=== PATIENT | male | born 1985 | race African-American/Black ===

== ENCOUNTER 2019-01-06 20:08 | Emergency (ER) | payer BC ==
[~2019-01-06] VITALS: Ht 182.9 cm; Wt 95.3 kg
[2019-01-06 20:09] VITALS: BP 177/100
[2019-01-06] MEDS ORDERED: FLONASE 0.05%50 MCG NASAL (20:47)
[2019-01-06] MEDS ORDERED: SUDOGEST30 MG PO (20:47)
== END 2019-01-06 20:59 | disposition home or self-care (01) ==
LOC: ER 20:08
DX: J06.9 Acute upper respiratory infection, unspecified (principal); J34.89 Other specified disorders of nose and nasal sinuses